=== PATIENT | male | born 1940 | race Caucasian/White ===

== ENCOUNTER 2022-06-22 09:04 | Inpatient (IN) | payer BC ==
[~2022-06-22] VITALS: Ht 167.6 cm; Wt 83.9 kg
[2022-06-22] MEDS ORDERED: CEFAZOLIN 2 GM IVPB PREMIX 50 ML IV ONE (10:18)
[2022-06-22] MEDS ORDERED: LIDOCAINE/EPI MPF 1%1:200000 30 ML VIAL ONE (10:25)
[2022-06-22] MEDS ORDERED: SEVOFLURANE 15 MIN GAS INH ONE (10:25)
[2022-06-22] MEDS ORDERED: SUGAMMADEX SODIUM 200 MG/2 ML VIAL IV ONE (10:25)
[2022-06-22] MEDS ORDERED: MEPERIDINE HCL/PF 50 MG/ML VIAL ONE (10:25)
[2022-06-22] MEDS ORDERED: PROPOFOL 200MG/ 20ML VIAL (DIPRIVAN) IV ONE (10:25)
[2022-06-22] MEDS ORDERED: NS IRRIG SOLN 1000 ML IR ONE (10:25)
[2022-06-22] MEDS ORDERED: ONDANSETRON HCL 4 MG/2 ML VIAL ONE (10:25)
[2022-06-22] MEDS ORDERED: fentaNYL CITRATE/PF 100 MCG/2 ML AMP ONE (10:25)
[2022-06-22] MEDS ORDERED: SUCCINYLCHOLINE CHLORIDE 20 MG/ML(QUELICIN) ONE (10:25)
[2022-06-22] MEDS ORDERED: ROCURONIUM BROMIDE 10 MG/ML (ZEMURON) ONE (10:25)
[2022-06-22] MEDS ORDERED: LR 1,000 ML IV.SOLN IV ONE (10:25)
[2022-06-22] MEDS ORDERED: INDOCYANINE GREEN 25 MG VIAL IV ONE (10:30)
[2022-06-22] MEDS ORDERED: CEFAZOLIN SOD 2 GM in D5W 50 ML IV ONE (10:30)
[2022-06-22] MEDS ORDERED: LR 1,000 ML IV SCH (11:30)
[2022-06-22] MEDS ORDERED: METOCLOPRAMIDE HCL 10 MG/2 ML VIAL IVP PRN (11:30)
[2022-06-22] MEDS ORDERED: MEPERIDINE HCL/PF 25 MG/ML DISP.SYRIN IVP PRN (11:30)
[2022-06-22] MEDS ORDERED: ONDANSETRON HCL 4 MG/2 ML VIAL IVP PRN ×2 (11:30→13:45)
[2022-06-22] MEDS ORDERED: HYDROmorphone 1 MG/ML INJ. CARTRIDGE IVP PRN (11:30)
[2022-06-22 15:47] VITALS: BP_SYST 117
[2022-06-22] MEDS ORDERED: METO25TA3 PO (16:07)
[2022-06-22] MEDS ORDERED: TICA90TA PO (16:07)
[2022-06-22] MEDS ORDERED: OMEP20CA15 PO (16:07)
[2022-06-22] MEDS ORDERED: LISI1TAB55 PO (16:07)
[2022-06-22] MEDS ORDERED: GABA300S PO (16:07)
[2022-06-22] MEDS ORDERED: ASPI-1457 PO (16:07)
[2022-06-22] MEDS ORDERED: TAMS-11 PO (16:07)
[2022-06-22] MEDS ORDERED: GLIP2.5T3 PO (16:07)
[2022-06-22] MEDS ORDERED: EZET-75 PO (16:07)
[2022-06-22] MEDS ORDERED: LIP80 PO (16:07)
[2022-06-22] MEDS ORDERED: SITA100T11 PO (16:07)
[2022-06-22] MEDS ORDERED: METF-379 PO (16:07)
[2022-06-22 16:37] VITALS: BP_SYST 117
[2022-06-22] MEDS: ACETAMINOPHEN 500 MG TABLET PO SCH ×2 (17:18→21:31)
[2022-06-22] MEDS: LR 1,000 ML IV SCH (17:24)
[2022-06-22 20:00] VITALS: BP_SYST 106
[2022-06-22] MEDS: HYDROmorphone 1 MG/ML INJ. CARTRIDGE IVP PRN (23:38)
[2022-06-23] VITALS: BP_SYST 115
[2022-06-23] MEDS: LR 1,000 ML IV SCH (04:32)
[2022-06-23] MEDS: ACETAMINOPHEN 500 MG TABLET PO SCH ×3 (06:46→18:31)
[2022-06-23 06:55] LABS: BASOPHILS % (AUTO) 0.3 % (0.0-2.0); EOSINOPHILS % (AUTO) 0.3 % (0.0-4.0); HEMATOCRIT 36.4 % (36-54); HEMOGLOBIN 12.5 g/dL (14.0-18.0); LYMPHOCYTES # (AUTO) 1.4 K/uL (1.0-5.5); LYMPHOCYTES % (AUTO) 11.6 % (20.5-51.5); MEAN CORPUSCULAR HEMOGLOBIN 28 pg (27-31); MEAN CORPUSCULAR HGB CONC 34 % (32-36); MEAN CORPUSCULAR VOLUME 83 fL (79.0-98.0); MONOCYTES # (AUTO) 1.1 K/uL (0.0-1.0); MONOCYTES % (AUTO) 9.3 % (1.7-9.3); NEUTROPHILS # (AUTO) 9.1 K/uL (1.8-7.7); NEUTROPHILS % (AUTO) 78.5 % (40.0-70.0); PLATELET COUNT (AUTO) 212 K/uL (130-430); RED CELL DISTRIBUTION WIDTH 13.1 % (9.0-15.0); WHITE BLOOD COUNT (AUTO) 11.6 K/uL (4.8-10.8)
[2022-06-23 07:35] LABS: ALANINE AMINOTRANSFERASE 68 U/L (12-78); ANION GAP 8 (5-15); ASPARTATE AMINOTRANSFERASE 48 U/L (10-37); CALCIUM 8.5 mg/dL (8.4-11.0); CHLORIDE 103 mmol/L (98-107); CREATININE 0.89 mg/dL (0.55-1.30); GLUCOSE 156 mg/dL (70-99); TOTAL BILIRUBIN 0.8 mg/dL (0.0-1.0); UREA NITROGEN, BLOOD 9 mg/dL (8-21)
[2022-06-23 08:13] VITALS: BP_SYST 126
[2022-06-23] MEDS: HYDROmorphone 1 MG/ML INJ. CARTRIDGE IVP PRN (08:26)
[2022-06-23 14:00] VITALS: BP_SYST 122
[2022-06-23] MEDS ORDERED: DOCUSATE SODIUM 100 MG CAPSULE PO PRN (14:00)
[2022-06-23] MEDS: HYDROcodone/ACETAMIN 5-325 MG TAB (NORCO/ VICODIN) PO PRN (14:04)
[2022-06-23 15:34] VITALS: BP_SYST 97
[2022-06-23 15:36] VITALS: BP_SYST 123
[2022-06-23] MEDS: ceFAZolin SODIUM 1 GM in D5W 50 ML IV SCH (15:38)
[2022-06-23 20:00] VITALS: BP_SYST 109
[2022-06-23] MEDS ORDERED: ceFAZolin SODIUM 1 GM in D5W 100 ML IV SCH (22:00)
[2022-06-24 01:22] VITALS: BP_SYST 120
[2022-06-24] MEDS: ceFAZolin SODIUM 1 GM in D5W 50 ML IV SCH ×2 (02:34→10:04)
[2022-06-24] MEDS: ACETAMINOPHEN 500 MG TABLET PO SCH ×4 (02:35→17:35)
[2022-06-24 07:31] VITALS: BP_SYST 135
[2022-06-24 08:14] LABS: ALANINE AMINOTRANSFERASE 46 U/L (12-78); ALBUMIN 2.8 g/dL (3.4-4.8); ANION GAP 10 (5-15); ASPARTATE AMINOTRANSFERASE 21 U/L (10-37); CALCIUM 8.7 mg/dL (8.4-11.0); CHLORIDE 103 mmol/L (98-107); CREATININE 0.81 mg/dL (0.55-1.30); GLUCOSE 127 mg/dL (70-99); TOTAL BILIRUBIN 0.8 mg/dL (0.0-1.0); UREA NITROGEN, BLOOD 7 mg/dL (8-21)
[2022-06-24 12:00] VITALS: BP_SYST 137
[2022-06-24] MEDS: HYDROcodone/ACETAMIN 5-325 MG TAB (NORCO/ VICODIN) PO PRN (12:15)
[2022-06-24 17:42] VITALS: BP_SYST 132
[2022-06-24 17:49] VITALS: BP_SYST 135
== END 2022-06-24 19:00 | disposition home health service (06) | DRG 418 ==
LOC: SDS 09:04 → SMU 09:07 → SDS 14:39 → SMU 16:07
PROVIDERS: ADMIT Surgery; ATTEND Surgery
PROC: 0FN44ZZ Release Gallbladder, Percutaneous Endoscopic Approach (ICD-10-PCS; 2022-06-22)
PROC: 8E0W4CZ Robotic Assisted Procedure of Trunk Region, Percutaneous Endoscopic Approach (ICD-10-PCS; 2022-06-22)
PROC: 0FT44ZZ Resection of Gallbladder, Percutaneous Endoscopic Approach (ICD-10-PCS; principal; 2022-06-22 10:31)
DX: K81.0 Acute cholecystitis (principal); K57.92 Diverticulitis of intestine, part unspecified, without perforation or abscess without bleeding; Z20.822 Contact with and (suspected) exposure to COVID-19
CPT/HCPCS: 36415; 80053; 85025; 87081; 88304; 97116-GP; 97163-GP; 97530-GP; C1727; E0190; J0330; J0690; J1170; J2175; J2405; J2704; J3010; J3490; J7060; J7120